=== PATIENT | male | born 1990 | race African-American/Black ===

== ENCOUNTER 2016-12-23 22:48 | Inpatient (IN) | payer OTHER ==
[~2016-12-23] VITALS: Ht 175.3 cm; Wt 142.5 kg
[~2016-12-23 22:48] MED LIST: ZNT/150 PO
[2016-12-23] MEDS ORDERED: ALUMINUM/MAGNESIUM SUSP 30 ML UDC PO STA (23:20)
[2016-12-23] MEDS ORDERED: LIDOCAINE HCL 2% VISC SOLN 20 ML UDC PO STA (23:20)
--- NOTE | 2016-12-23 23:23 | EMERGENCY ROOM VISIT NOTE ---
History Report prepared by Micah: Иван Moody Under the Supervision of: Dr. Yolis Strong D.O. First contact with patient: 23:04 Chief Complaint: CHEST PAIN Stated Complaint: RT SIDE CHEST PAINS, SOB, UPPER ABD PAIN History of Present Illness The patient is a 26 year old male who presents to the Emergency Room with complaints of tight mid-sternal chest pain that began 30 minutes ago. He rates his pain a 10/10 in severity. At this time, the patient was playing video games when the pain began. He also became short of breath as well. This has never happened to him before. He states that he has a history of GERD, and that this pain feels mildly similar. He notes that nothing makes it better or worse, specifically exertion. He takes a GERD medication every morning, and he has been keeping up with his dosages. He ate Prydeinig food earlier, but he says that it did not cause him an abnormal amount of indigestion. He denies any abdominal pain. His mother has a history of cardiac disease. Source of History: patient Onset: 30 minutes ago Position: chest (mid) Symptom Intensity: 10/10 Quality: other (Tight) Timing: constant Associated Symptoms: + SOB, No abdominal pain Review of Systems See HPI for pertinent positives & negatives. A total of 10 systems reviewed and were otherwise negative. Past Medical & Surgical Medical Problems: (1) Achilles rupture, left (2) GERD (gastroesophageal reflux disease) (3) Obesity (4) Tobacco abuse Family History Heart disease Social History Smoking Status: Never Smoker Smokeless Tobacco Use: No Alcohol Use: none Drug Use: none Housing Status: lives with significant other Occupation Status: employed Current/Historical Medications Scheduled Omeprazole (Prilosec), 20 MG PO DAILY Allergies Coded Allergies: No Known Allergies (Unverified , 12/23/16) Physical Exam Vital Signs Date Time Temp Pulse Resp B/P (MAP) Pulse Ox O2 Delivery O2 Flow Rate FiO2 12/24/16 02:13 69 18 138/69 96 Room Air 12/24/16 00:13 84 18 141/65 95 Room Air 12/23/16 23:09 72 12/23/16 22:52 36.7 83 20 160/93 99 Room Air Physical Exam HEENT: Head - normocephalic and atraumatic Pupils are equal, round, and reactive to light. Extraocular eye muscles are intact, and sclera are anicteric. Nose - moist nasal mucosa without discharge. Mouth - moist buccal mucosa. Oropharynx is nonerythematous and there is no tonsillar exudate or edema noted. Neck: Supple; no JVD, nuchal rigidity, cervical lymphadenopathy. Heart: Regular rate and rhythm. There is a normal S1 and S2 with no murmurs, clicks, or gallops appreciated. Lungs: Clear to auscultation bilaterally with no wheezes, rales, or rhonchi. Abdomen: Soft, completely nontender, nondistended, with good bowel sounds. There are no palpable pulsatile masses or hepatosplenomegaly. There is no guarding, rigidity, or rebound noted. Extremities: No evidence of cyanosis, clubbing, or edema. There are easily palpable peripheral pulses. Skin: warm and dry with good turgor and no rashes. Medical Decision & Procedures ER Provider Diagnostic Interpretation: Radiology results as stated below per my review and the radiologist's interpretation: CHEST X-RAY: No cardiomegaly, no pulmonary pathology. Per me Laboratory Results Test 12/23/16 23:06 Immature Granulocyte % (Auto) 0.3 % White Blood Count 12.59 K/uL (4.8-10.8) Red Blood Count 4.69 M/uL (4.7-6.1) Hemoglobin 14.3 g/dL (14.0-18.0) Hematocrit 41.2 % (42-52) Mean Corpuscular Volume 87.8 fL (80-100) Mean Corpuscular Hemoglobin 30.5 pg (25-34) Mean Corpuscular Hemoglobin Concent 34.7 g/dl (32-36) Platelet Count 248 K/uL (130-400) Mean Platelet Volume 9.7 fL (7.4-10.4) Neutrophils (%) (Auto) 60.0 % Lymphocytes (%) (Auto) 28.8 % Monocytes (%) (Auto) 8.4 % Eosinophils (%) (Auto) 2.3 % Basophils (%) (Auto) 0.2 % Neutrophils # (Auto) 7.54 K/uL (1.4-6.5) Lymphocytes # (Auto) 3.63 K/uL (1.2-3.4) Monocytes # (Auto) 1.06 K/uL (0.11-0.59) Eosinophils # (Auto) 0.29 K/uL (0-0.5) Basophils # (Auto) 0.03 K/uL (0-0.2) Immature Granulocyte # (Auto) 0.04 K/uL (0.00-0.02) Prothrombin Time 10.8 SECONDS (9.0-12.0) Prothromb Time International Ratio 1.0 (0.9-1.1) D-Dimer 200 ug/L FEU (0-500) Total Bilirubin 0.4 mg/dl (0.2-1) Aspartate Amino Transf (AST/SGOT) 136 U/L (15-37) Alanine Aminotransferase (ALT/SGPT) 54 U/L (12-78) Alkaline Phosphatase 64 U/L (45-117) Total Protein 7.2 gm/dl (6.4-8.2) Albumin 3.9 gm/dl (3.4-5.0) Globulin 3.3 gm/dl (2.5-4.0) Albumin/Globulin Ratio 1.2 (0.9-2) Laboratory results per my review. Medications Administered Medications (Trade) Dose Ordered Sig/Hanna Route Start Time Stop Time Status Last Admin Dose Admin Lidocaine HCl (Viscous Lidocaine 2% Soln) 10 ml NOW STAT PO 12/23/16 23:20 12/23/16 23:21 DC 12/23/16 23:29 10 ML Al Hydroxide/Mg Hydroxide (Maalox Susp) 30 ml NOW STAT PO 12/23/16 23:20 12/23/16 23:21 DC 12/23/16 23:29 30 ML Ranitidine HCl (zANTac IV) 50 mg NOW STAT IV 12/24/16 00:14 12/24/16 00:15 DC 12/24/16 00:23 50 MG Ketorolac Tromethamine (Toradol Inj) 30 mg NOW STAT IV 12/24/16 00:14 12/24/16 00:15 DC 12/24/16 00:21 30 MG Sodium Chloride 1,000 ml @ 999 mls/hr Q1H1M STAT IV 12/24/16 01:24 12/24/16 02:24 DC 12/24/16 01:33 999 MLS/HR Sodium Chloride 1,000 ml @ 250 mls/hr Q4H STAT IV 7/14/17 01:24 12/24/16 03:55 DC 12/24/16 02:36 250 MLS/HR Procedure Maalox Susp 30 ml PO Lidocaine HCl 10 ml PO Toradol Inj 30 mg IV Ranitidine HCl 50 mg IV Sodium Chloride 1000 ml @ 250 mls/hr IV Sodium Chloride 1000 ml @ 999 mls/hr IV ECG Indication: chest pain Rate (beats per minute): 71 Rhythm: normal sinus Findings: no acute ischemic change, no ectopy ED Course 2304: Past medical records reviewed. The patient was evaluated in room C9. A complete history and physical exam was performed. A twelve-lead EKG was obtained. An IV lock was initiated and labs were drawn as above. The patient was observing the ekg monitor and pulse oximeter. 2320: Ordered Maalox Susp 30 ml PO, Lidocaine HCl 10 ml PO 0000: The patient's pain is down to a 5/10. 0014: Ordered Toradol Inj 30 mg IV, Ranitidine HCl 50 mg IV. In reviewing the patient's medical records, I noted that he has a history of rhabdomyolysis previous episode of chest pain in 2010. 0124: Total CPK was greater than 7000. I Ordered Sodium Chloride 1000 ml @ 250 mls/hr IV, Sodium Chloride 1000 ml @ 999 mls/hr IV. 0128: Upon reevaluation, I discussed findings and results with the patient. He verbalized agreement of the treatment plan. I spoke with Dr. Curiel of the [facility]. The patient will be evaluated for further management and care. Medical Decision The patient is a 26 year old male who presents to the ED with chest pain. Differential diagnosis includes GERD, anxiety, pleurisy, costochondritis, pulmonary embolism, and cardiac ischemia. I attest that I have personally reviewed the patient's current medication list. Patient was found to have an elevated blood pressure and was referred to their primary doctor for recheck and further treatment. Laboratory Results: White Blood Cell count 12.5, stable H&H, creatinine 1.5, BUN 20, glucose 113, troponin negative, total CK 7,906. D-Dimer 200. The patient has a history of GERD. He had some improvement in the chest discomfort with taking a GI cocktail. He reviewing the patient's medical records, he has previously Sewed of chest pain which brought him here to the emergency department 2010. At that time, he was diagnosed with rhabdomyolysis. It seems that he is same diagnoses today. Consults Time Called: [phone] Consulting Physician: Dr. Moisés Martínez Hospitalist Returned Call: [phone] They will be evaluating the patient for further management and care. Impression Primary Impression: Rhabdomyolysis Additional Impression: Atypical chest pain Scribe Attestation The scribe's documentation has been prepared under my direction and personally reviewed by me in its entirety. I confirm that the note above accurately reflects all work, treatment, procedures, and medical decision making performed by me. Departure Information Dispostion Being Evaluated By Hospitalist Referrals No Doctor, Assigned (PCP) Patient Instructions My [facility] Problem Qualifiers
[2016-12-23 23:26] LABS: BASO % 0.2 %; BASO ABS # 0.03 K/uL (0-0.2); COMPLETE YES; EOS % 2.3 %; HEMATOCRIT 41.2 % (42-52); IG% 0.3 %; LYMPH % 28.8 %; LYMPH ABS # 3.63 K/uL (1.2-3.4); MEAN CELL VOLUME 87.8 fL (80-100); MEAN CORPUSCULAR HEMOGLOBIN 30.5 pg (25-34); MEAN CORPUSCULAR HGB CONC 34.7 g/dl (32-36); MEAN PLATELET VOLUME 9.7 fL (7.4-10.4); MONO % 8.4 %; PLATELET COUNT 248 K/uL (130-400); RED BLOOD COUNT 4.69 M/uL (4.7-6.1); WHITE BLOOD COUNT 12.59 K/uL (4.8-10.8)
[2016-12-23 23:47] LABS: BLOOD UREA NITROGEN 20 mg/dl (7-18); CALCIUM 8.6 mg/dl (8.5-10.1); CARBON DIOXIDE 24 mmol/L (21-32); CHLORIDE 107 mmol/L (98-107); GLUCOSE 113 mg/dl (70-99); POTASSIUM 3.6 mmol/L (3.5-5.1); SODIUM 138 mmol/L (136-145)
[2016-12-23] MEDS ORDERED: PRLSR20 PO (23:48)
[2016-12-24] VITALS (8 sets, daily range): BP systolic 127–156; BP diastolic 71–79; PULSE 56–71; TEMP 36.3–36.7; O2SAT 95–98; Ht 175.3 cm; Wt 142.5 kg
[2016-12-24 00:14] LABS: ALB/GLOB RATIO 1.2 (0.9-2); ALKALINE PHOSPHATASE 64 U/L (45-117); ALT/SGPT 54 U/L (12-78); AST/SGOT 136 U/L (15-37)
[2016-12-24] MEDS ORDERED: KETOROLAC TROMETHAMINE 30 MG/ML VIAL IV STA (00:14)
[2016-12-24] MEDS ORDERED: RANITIDINE HCL 50 MG/100 ML D5W IV STA (00:14)
[2016-12-24] MEDS ORDERED: SODIUM CHLORIDE 0.9% 1000ML 1,000 ML IV STA ×2 (01:24)
[2016-12-24 01:56] LABS: PROTHROMBIN TIME (PATIENT) 10.8 SECONDS (9.0-12.0)
[2016-12-24] MEDS ORDERED: ACETAMINOPHEN 325 MG TAB PO PRN (02:15)
[2016-12-24] MEDS ORDERED: ONDANSETRON INJ 2 MG/ML 2 ML VIAL IV PRN (02:15)
--- NOTE | 2016-12-24 02:43 | History and Physical ---
History & Physical Date & Time of Service: Dec 24, 2016 at 02:16 Chief Complaint: Rt Side Chest Pains, Sob, Upper Abd Pain Primary Care Physician: Shaun Arrieta D.O. History of Present Illness Source: patient, partner, clinic records, hospital records 26 yo M presents to the ER with substernal chest pain that was described as a tightness. This came on while he was playing video games at home 3 hours after working out. He admits to taking workout supplements including Thermogenic, CLA , a pre-workout mix with NO and caffeine and a post-workout protein supplement. He states that this was the first workout in an effort to get back into shape for football season after an achilles tendon repair last fall. He also works outside at a [employer] and worked 8 hours today. He reports drinking Gatorade and water while working and doesn't feel he gets dehydrated. He reports some shortness of breath and lightheadedness with the chest pain but this didn't start right away and he thinks it may have been related to the stress of what was going on. He denies any palpitations, sweating, numbness, nausea, vomiting , diarrhea, blood in the stool or urine and no discoloration of his urine. He reports some soreness generally in his muscles from working out but doesn't feel this is out of the ordinary. He denies pain at this time. He does admit to smoking 8 cigarettes per day and has a plan to quit; he is also using nicorette gum. He otherwise has no medical problems. In the ER he was given a GI cocktail with only minimal improvement in symptoms. Chest pain resolved with IVF administration. 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 (2) GERD (gastroesophageal reflux disease) Status: Chronic (3) Obesity Status: Chronic (4) Tobacco abuse Status: Chronic Family History Diabetes mellitus FATHER Heart disease MOTHER (62 yo) Social History Smoking Status: Current Every Day Smoker Smokeless Tobacco Use: No Alcohol Use: socially Drug Use: none Marital Status: in relationship Housing status: lives with significant other Occupational Status: employed Immunizations History of Influenza Vaccine: No History of Tetanus Vaccine?: No History of Pneumococcal: No History of Hepatitis B Vaccine: No Multi-Drug Resistant Organisms History of MDRO: No Allergies Coded Allergies: No Known Allergies (Unverified , 12/23/16) Home Medications Scheduled Omeprazole (Prilosec), 20 MG PO DAILY Review of Systems At least ten systems reviewed and negative except as indicated in HPI Physical Exam Vital Signs Date Time Temp Pulse Resp B/P (MAP) Pulse Ox O2 Delivery O2 Flow Rate FiO2 12/24/16 00:13 84 18 141/65 95 Room Air 12/23/16 23:09 72 12/23/16 22:52 36.7 83 20 160/93 99 Room Air GEN: Obese, +muscle mass, in no acute distress, alert and appropriate HEENT: NC/AT, pupils are equal and reactive, normal sclerae/conjunctivae, MMM CARDIO: reg rate, S1/2 heard without m/g/r LUNGS: CTA bilaterally, no crackles, rales or wheezes, good diaphragmatic excursion ABD: soft, non-tender, non-distended, no rebound or guarding, +BS EXTREMITY: RP and DP palpable 2+ bilat, no LE swelling or edema, extremities are warm and well-perfused NEURO: CN 2-12 grossly intact, sensation intact throughout MUSC: 5/5 strength throughout, moves all extremities equally, able to sit up with ease SKIN: warm and dry Diagnostics Laboratory Results Results Past 24 Hours Test 12/23/16 23:06 Range/Units White Blood Count 12.59 4.8-10.8 K/uL Red Blood Count 4.69 4.7-6.1 M/uL Hemoglobin 14.3 14.0-18.0 g/dL Hematocrit 41.2 42-52 % Mean Corpuscular Volume 87.8 80-100 fL Mean Corpuscular Hemoglobin 30.5 25-34 pg Mean Corpuscular Hemoglobin Concent 34.7 32-36 g/dl Platelet Count 248 130-400 K/uL Mean Platelet Volume 9.7 7.4-10.4 fL Neutrophils (%) (Auto) 60.0 % Lymphocytes (%) (Auto) 28.8 % Monocytes (%) (Auto) 8.4 % Eosinophils (%) (Auto) 2.3 % Basophils (%) (Auto) 0.2 % Neutrophils # (Auto) 7.54 1.4-6.5 K/uL Lymphocytes # (Auto) 3.63 1.2-3.4 K/uL Monocytes # (Auto) 1.06 0.11-0.59 K/uL Eosinophils # (Auto) 0.29 0-0.5 K/uL Basophils # (Auto) 0.03 0-0.2 K/uL RDW Standard Deviation 42.4 36.4-46.3 fL RDW Coefficient of Variation 13.2 11.5-14.5 % Immature Granulocyte % (Auto) 0.3 % Immature Granulocyte # (Auto) 0.04 0.00-0.02 K/uL Prothrombin Time 10.8 9.0-12.0 SECONDS Prothromb Time International Ratio 1.0 0.9-1.1 D-Dimer 200 0-500 ug/L FEU Sodium Level 138 136-145 mmol/L Potassium Level 3.6 3.5-5.1 mmol/L Chloride Level 107 98-107 mmol/L Carbon Dioxide Level 24 21-32 mmol/L Anion Gap 7.0 3-11 mmol/L Blood Urea Nitrogen 20 7-18 mg/dl Creatinine 1.50 0.60-1.40 mg/dl Est Creatinine Clear Calc Drug Dose 102.6 ml/min Estimated GFR () 72.9 Estimated GFR (Non- 62.9 BUN/Creatinine Ratio 13.0 10-20 Random Glucose 113 70-99 mg/dl Calcium Level 8.6 8.5-10.1 mg/dl Total Bilirubin 0.4 0.2-1 mg/dl Aspartate Amino Transf (AST/SGOT) 136 15-37 U/L Alanine Aminotransferase (ALT/SGPT) 54 12-78 U/L Alkaline Phosphatase 64 45-117 U/L Total Creatine Kinase 7906 39-308 U/L Creatine Kinase MB 20.9 0.5-3.6 ng/ml Creatine Kinase MB Ratio 0-3.0 Troponin I < 0.015 0-0.045 ng/ml Total Protein 7.2 6.4-8.2 gm/dl Albumin 3.9 3.4-5.0 gm/dl Globulin 3.3 2.5-4.0 gm/dl Albumin/Globulin Ratio 1.2 0.9-2 Diagnostic Radiology CXR (wet read): clear without acute intrathoracic process EKG SR 71, no ST changes. Impression Assessment and Plan 26 yo M admitted with rhabdomyolysis 1. Rhabdomyolysis 2/2 supplement use in setting of first workout after 6 month recovery from prior surgery as well as environmental exposure to heat for 8 hours working today. He has a h/o rhabdo in the past which also put him in the hospital. He was also using supplements at that time. Counseled to stop using these with workouts and to avoid heavy exercise for at least one week post- discharge. He verbalized understanding with intent to comply. He will be placed on a monitored floor as a precaution and given more IVF overnight. No pain at this time. Will repeat labwork including CK and trop with morning labs. 2. Tobacco use-plan to quit with nicotine gum 3. GERD-PPI 4. Obesity DVT proph-SCDs/ambulation Full Code Dispo-telemetry DO [facility] Hospital[facility] Level of Care Telemetry Resuscitation Status FULL RESUSCITATION VTE Prophylaxis VTE Risk Assessment Done? Y/N: Yes Risk Level: Moderate Given or contraindicated: SCD's, Treatment not indicated
[2016-12-24] MEDS ORDERED: IV FLUIDS COMPLETED PRN (02:45)
[2016-12-24] MEDS: SODIUM CHLORIDE 0.9% 1000ML 1,000 ML IV SCH ×2 (03:59→10:35)
[2016-12-24 05:30] LABS: HEMATOCRIT 41.1 % (42-52); MEAN CELL VOLUME 89.2 fL (80-100); MEAN CORPUSCULAR HEMOGLOBIN 29.7 pg (25-34); MEAN CORPUSCULAR HGB CONC 33.3 g/dl (32-36); MEAN PLATELET VOLUME 9.8 fL (7.4-10.4); PLATELET COUNT 230 K/uL (130-400); RED BLOOD COUNT 4.61 M/uL (4.7-6.1); WHITE BLOOD COUNT 9.16 K/uL (4.8-10.8)
[2016-12-24 06:02] LABS: BLOOD UREA NITROGEN 18 mg/dl (7-18); CALCIUM 8.2 mg/dl (8.5-10.1); CARBON DIOXIDE 27 mmol/L (21-32); CHLORIDE 107 mmol/L (98-107); GLUCOSE 91 mg/dl (70-99); MAGNESIUM 2.4 mg/dl (1.8-2.4); POTASSIUM 3.7 mmol/L (3.5-5.1); SODIUM 140 mmol/L (136-145)
[2016-12-24 06:30] LABS: CKMB/CK RATIO 0.3 (0-3.0); PHOSPHORUS 3.5 mg/dl (2.5-4.9)
--- NOTE | 2016-12-24 06:44 | DIAGNOSTIC IMAGING REPORT ---
CHEST ONE VIEW PORTABLE CLINICAL HISTORY: Atypical chest pain and shortness of breath COMPARISON STUDY: 12/17/2010 FINDINGS: The cardiac and mediastinal contours are normal. There is no evidence of focal pulmonary consolidation. There is no evidence of failure. No pleural effusions are visualized.[ IMPRESSION: No active disease in the chest. Electronically signed by: Kalen Cuadra M.D. 12/24/2016 6:43 AM Dictated Date/Time: 12/24/2016 6:42 AM
[2016-12-24] MEDS: PANTOprazole SOD 40 MG TAB PO SCH (10:34)
--- NOTE | 2016-12-24 11:35 | Progress Note ---
Internal Med Progress Note Date of Service: Dec 24, 2016. Provider Documentation: SUBJECTIVE: The patine omega seen and examined Denies any symptoms OBJECTIVE: Vital Signs-as noted below Exam: General-No distress at rest Eyes-normal ENT-normal Neck-supple Lungs-clear to ausucltate bilaterally Heart-Regular,no murmur appreciated Abdomen-Benign,no masses,bowel sound present Extremities-Trace edema bilaterally Neuro-AAOx3 No focal neuro deficit Lab data as noted below. ASSESSMENT & PLAN: Rhabdomyolysis -2/2 supplement use in setting of first workout after 6 month recovery from prior surgery -Also environmental exposure to heat for 8 hours working today. -Started on IVF -will increase the dose and advised to drink more water -CPK is high at >8k,will check at 4PM -may be going home if significantly improved -no Kidney injury Tobacco use-plan to quit with nicotine gum GERD-PPI Obesity DVT proph-SCDs/ambulation Full Code Dispo-telemetry Likely to be discharged in a day or two Vital Signs: Date Time Temp Pulse Resp B/P (MAP) Pulse Ox O2 Delivery O2 Flow Rate FiO2 12/24/16 10:35 36.6 59 20 139/71 (93) 98 Room Air 12/24/16 08:06 98 Room Air 12/24/16 07:47 36.6 71 20 138/79 (98) 98 Room Air 12/24/16 04:00 36.5 65 18 144/75 97 Room Air 12/24/16 03:24 79 17 129/72 98 12/24/16 02:48 62 12/24/16 02:13 69 18 138/69 96 Room Air 12/24/16 00:13 84 18 141/65 95 Room Air 12/23/16 23:09 72 12/23/16 22:52 36.7 83 20 160/93 99 Room Air Lab Results: Results Past 24 Hours Test 12/23/16 23:06 12/24/16 05:04 Range/Units White Blood Count 12.59 9.16 4.8-10.8 K/uL Red Blood Count 4.69 4.61 4.7-6.1 M/uL Hemoglobin 14.3 13.7 14.0-18.0 g/dL Hematocrit 41.2 41.1 42-52 % Mean Corpuscular Volume 87.8 89.2 80-100 fL Mean Corpuscular Hemoglobin 30.5 29.7 25-34 pg Mean Corpuscular Hemoglobin Concent 34.7 33.3 32-36 g/dl Platelet Count 248 230 130-400 K/uL Mean Platelet Volume 9.7 9.8 7.4-10.4 fL Neutrophils (%) (Auto) 60.0 % Lymphocytes (%) (Auto) 28.8 % Monocytes (%) (Auto) 8.4 % Eosinophils (%) (Auto) 2.3 % Basophils (%) (Auto) 0.2 % Neutrophils # (Auto) 7.54 1.4-6.5 K/uL Lymphocytes # (Auto) 3.63 1.2-3.4 K/uL Monocytes # (Auto) 1.06 0.11-0.59 K/uL Eosinophils # (Auto) 0.29 0-0.5 K/uL Basophils # (Auto) 0.03 0-0.2 K/uL RDW Standard Deviation 42.4 44.0 36.4-46.3 fL RDW Coefficient of Variation 13.2 13.4 11.5-14.5 % Immature Granulocyte % (Auto) 0.3 % Immature Granulocyte # (Auto) 0.04 0.00-0.02 K/uL Prothrombin Time 10.8 9.0-12.0 SECONDS Prothromb Time International Ratio 1.0 0.9-1.1 D-Dimer 200 0-500 ug/L FEU Sodium Level 138 140 136-145 mmol/L Potassium Level 3.6 3.7 3.5-5.1 mmol/L Chloride Level 107 107 98-107 mmol/L Carbon Dioxide Level 24 27 21-32 mmol/L Anion Gap 7.0 6.0 3-11 mmol/L Blood Urea Nitrogen 20 18 7-18 mg/dl Creatinine 1.50 1.30 0.60-1.40 mg/dl Est Creatinine Clear Calc Drug Dose 102.6 118.0 ml/min Estimated GFR () 72.9 86.7 Estimated GFR (Non- 62.9 74.8 BUN/Creatinine Ratio 13.0 14.0 10-20 Random Glucose 113 91 70-99 mg/dl Calcium Level 8.6 8.2 8.5-10.1 mg/dl Total Bilirubin 0.4 0.2-1 mg/dl Aspartate Amino Transf (AST/SGOT) 136 15-37 U/L Alanine Aminotransferase (ALT/SGPT) 54 12-78 U/L Alkaline Phosphatase 64 45-117 U/L Total Creatine Kinase 7906 8890 39-308 U/L Creatine Kinase MB 20.9 24.1 0.5-3.6 ng/ml Creatine Kinase MB Ratio 0.3 0-3.0 Troponin I < 0.015 < 0.015 0-0.045 ng/ml Total Protein 7.2 6.4-8.2 gm/dl Albumin 3.9 3.4-5.0 gm/dl Globulin 3.3 2.5-4.0 gm/dl Albumin/Globulin Ratio 1.2 0.9-2 Phosphorus Level 3.5 2.5-4.9 mg/dl Magnesium Level 2.4 1.8-2.4 mg/dl
[2016-12-24 16:37] LABS: BUN/CREATININE RATIO 13.3 (10-20); CALCIUM 7.9 mg/dl (8.5-10.1); CREATININE 1.1 mg/dl (0.60-1.40); POTASSIUM 4.2 mmol/L (3.5-5.1)
[2016-12-25] VITALS (7 sets, daily range): BP systolic 121–145; BP diastolic 67–79; PULSE 59–71; TEMP 36.6–36.9; O2SAT 96–98
[2016-12-25 06:52] LABS: HEMATOCRIT 38.6 % (42-52); MEAN CELL VOLUME 90.6 fL (80-100); MEAN CORPUSCULAR HEMOGLOBIN 31.2 pg (25-34); MEAN CORPUSCULAR HGB CONC 34.5 g/dl (32-36); MEAN PLATELET VOLUME 10.1 fL (7.4-10.4); PLATELET COUNT 218 K/uL (130-400); RED BLOOD COUNT 4.26 M/uL (4.7-6.1)
[2016-12-25 07:24] LABS: BUN/CREATININE RATIO 6.6 (10-20); CALCIUM 8.2 mg/dl (8.5-10.1); CREATININE 1.2 mg/dl (0.60-1.40); MAGNESIUM 2.2 mg/dl (1.8-2.4); POTASSIUM 4.2 mmol/L (3.5-5.1)
[2016-12-25 07:54] LABS: PHOSPHORUS 3.1 mg/dl (2.5-4.9)
[2016-12-25] MEDS: PANTOprazole SOD 40 MG TAB PO SCH (08:39)
[2016-12-25] MEDS: SODIUM CHLORIDE 0.9% 1000ML 1,000 ML IV SCH ×2 (09:15→14:27)
--- NOTE | 2016-12-25 14:43 | Progress Note ---
Internal Med Progress Note Date of Service: Dec 25, 2016. Provider Documentation: SUBJECTIVE: The patine twas seen and examined Denies any symptoms Wants to go home no matter what is the level of CPK CPK level is not yet safe level to be discharged Will sign out AMA if not discharged OBJECTIVE: Vital Signs-as noted below Exam: General-No distress at rest Eyes-normal ENT-normal Neck-supple Lungs-clear to ausucltate bilaterally Heart-Regular,no murmur appreciated Abdomen-Benign,no masses,bowel sound present Extremities-Trace edema bilaterally Neuro-AAOx3 No focal neuro deficit Lab data as noted below. ASSESSMENT & PLAN: Rhabdomyolysis -2/2 supplement use in setting of first workout after 6 month recovery from prior surgery -Also environmental exposure to heat for 8 hours working today. -Started on IVF -will increase the dose and advised to drink more water -CPK is high at >8k,will check at 4PM -may be going home if significantly improved -no Kidney injury -CPK remains >8K -continue IVF and recheck at 3 PM -will send home this afternoon -CPK still >8000 a little low compared with the level of this Morning -Discussed about the risk of Kidney failure high level of CPK -Accepted the risk of getting worse if goes home -Will see PCP on Tuesday with the Blood test Tobacco use-plan to quit with nicotine gum GERD-PPI Obesity DVT proph-SCDs/ambulation Full Code Dispo-telemetry Discharged home -accepted the risk of getting worse Discussed in front of the Girl friend Both of them are understanding Vital Signs: Date Time Temp Pulse Resp B/P (MAP) Pulse Ox O2 Delivery O2 Flow Rate FiO2 12/25/16 16:04 Room Air 12/25/16 15:03 36.9 63 18 135/71 (92) 98 Room Air 12/25/16 12:03 Room Air 12/25/16 10:49 36.6 59 18 121/67 (85) 98 Room Air 12/25/16 08:02 Room Air 12/25/16 07:21 36.9 71 18 145/79 (101) 96 Room Air 12/25/16 04:00 98 Room Air 12/25/16 03:52 36.8 63 20 123/73 (90) 98 Room Air 12/25/16 00:00 97 Room Air 12/24/16 23:30 36.7 62 22 127/79 (95) 97 Room Air 12/24/16 20:00 95 Room Air 12/24/16 19:25 36.6 58 16 156/77 (103) 95 Room Air Lab Results: Results Past 24 Hours Test 12/25/16 06:20 12/25/16 15:10 Range/Units White Blood Count 6.00 4.8-10.8 K/uL Red Blood Count 4.26 4.7-6.1 M/uL Hemoglobin 13.3 14.0-18.0 g/dL Hematocrit 38.6 42-52 % Mean Corpuscular Volume 90.6 80-100 fL Mean Corpuscular Hemoglobin 31.2 25-34 pg Mean Corpuscular Hemoglobin Concent 34.5 32-36 g/dl RDW Standard Deviation 45.5 36.4-46.3 fL RDW Coefficient of Variation 13.8 11.5-14.5 % Platelet Count 218 130-400 K/uL Mean Platelet Volume 10.1 7.4-10.4 fL Sodium Level 142 143 136-145 mmol/L Potassium Level 4.2 4.1 3.5-5.1 mmol/L Chloride Level 110 113 98-107 mmol/L Carbon Dioxide Level 27 26 21-32 mmol/L Anion Gap 5.0 4.0 3-11 mmol/L Blood Urea Nitrogen 8 6 7-18 mg/dl Creatinine 1.20 1.00 0.60-1.40 mg/dl Est Creatinine Clear Calc Drug Dose 130.1 156.1 ml/min Estimated GFR () 95.5 119.0 Estimated GFR (Non- 82.4 102.7 BUN/Creatinine Ratio 6.6 6.4 10-20 Random Glucose 92 94 70-99 mg/dl Calcium Level 8.2 8.0 8.5-10.1 mg/dl Phosphorus Level 3.1 2.5-4.9 mg/dl Magnesium Level 2.2 1.8-2.4 mg/dl Total Creatine Kinase 8397 8018 39-308 U/L
[2016-12-25 15:36] LABS: BUN/CREATININE RATIO 6.4 (10-20); POTASSIUM 4.1 mmol/L (3.5-5.1)
--- NOTE | 2016-12-25 16:03 | Discharge Instructions ---
Discharge Instructions Date of Service Dec 25, 2016. Admission Reason for Admission: Rhabdomyolysis Discharge Discharge Diagnosis / Problem: Rhabdomyolysis Discharge Goals Goal(s): Prevent Disease Progression Activity Recommendations Activity Limitations: resume your previous activity No Strenuous activity until being evaluated by your PCP . Instructions / Follow-Up Instructions / Follow-Up Your Doctor's office will call with appointment Current Hospital Diet Patient's current hospital diet: Regular Diet Discharge Diet Recommended Diet: Regular Diet Pending Studies Studies pending at discharge: no Medical Emergencies . Who to Call and When: Medical Emergencies: If at any time you feel your situation is an emergency, please call 911 immediately. . Non-Emergent Contact Non-Emergency issues call your: Primary Care Provider . Past History Medical & Surgical History: (1) Rhabdomyolysis (2) Achilles rupture, left (3) Obesity (4) Tobacco abuse . "Provider Documentation" section prepared by Soila Taylor. . VTE Core Measure Inpt VTE Proph given/why not?: SCD's, Treatment not indicated
--- NOTE | 2016-12-26 08:04 | Discharge Summary ---
Discharge Summary Date of Service Dec 26, 2016. Discharge Summary Admission Date: Dec 24, 2016 at 02:37 Discharge Date: Dec 25, 2016 Discharge Disposition: Home Principal Diagnosis: Rhabdomyolysis Secondary Diagnoses/Problems: Please se H&P and Hospital Progress note Medication Reconciliation Continued Medications: Omeprazole (Prilosec) 20 Mg Capcr 20 MG PO DAILY, CAP Admission Information HPI (per Admitting provider): 26 yo M presents to the ER with substernal chest pain that was described as a tightness. This came on while he was playing video games at home 3 hours after working out. He admits to taking workout supplements including Thermogenic, CLA , a pre-workout mix with NO and caffeine and a post-workout protein supplement. He states that this was the first workout in an effort to get back into shape for football season after an achilles tendon repair last fall. He also works outside at a [employer] and worked 8 hours today. He reports drinking Gatorade and water while working and doesn't feel he gets dehydrated. He reports some shortness of breath and lightheadedness with the chest pain but this didn't start right away and he thinks it may have been related to the stress of what was going on. He denies any palpitations, sweating, numbness, nausea, vomiting , diarrhea, blood in the stool or urine and no discoloration of his urine. He reports some soreness generally in his muscles from working out but doesn't feel this is out of the ordinary. He denies pain at this time. He does admit to smoking 8 cigarettes per day and has a plan to quit; he is also using nicorette gum. He otherwise has no medical problems. In the ER he was given a GI cocktail with only minimal improvement in symptoms. Chest pain resolved with IVF administration. 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 (2) GERD (gastroesophageal reflux disease) Status: Chronic (3) Obesity Status: Chronic (4) Tobacco abuse Status: Chronic Family History Diabetes mellitus FATHER Heart disease MOTHER (62 yo) Social History Smoking Status: Current Every Day Smoker Smokeless Tobacco Use: No Alcohol Use: socially Drug Use: none Marital Status: in relationship Housing status: lives with significant other Occupational Status: employed Immunizations History of Influenza Vaccine: No History of Tetanus Vaccine?: No History of Pneumococcal: No History of Hepatitis B Vaccine: No Multi-Drug Resistant Organisms History of MDRO: No Allergies Coded Allergies: No Known Allergies (Unverified , 12/23/16) Home Medications Scheduled Omeprazole (Prilosec), 20 MG PO DAILY Review of Systems At least ten systems reviewed and negative except as indicated in HPI Physical Ex - H&P Physical Exam Vital Signs Date Time Temp Pulse Resp B/P (MAP) Pulse Ox O2 Delivery O2 Flow Rate FiO2 12/24/16 00:13 84 18 141/65 95 Room Air 12/23/16 23:09 72 12/23/16 22:52 36.7 83 20 160/93 99 Room Air GEN: Obese, +muscle mass, in no acute distress, alert and appropriate HEENT: NC/AT, pupils are equal and reactive, normal sclerae/conjunctivae, MMM CARDIO: reg rate, S1/2 heard without m/g/r LUNGS: CTA bilaterally, no crackles, rales or wheezes, good diaphragmatic excursion ABD: soft, non-tender, non-distended, no rebound or guarding, +BS EXTREMITY: RP and DP palpable 2+ bilat, no LE swelling or edema, extremities are warm and well-perfused NEURO: CN 2-12 grossly intact, sensation intact throughout MUSC: 5/5 strength throughout, moves all extremities equally, able to sit up with ease SKIN: warm and dry Diagnostics - H&P Diagnostics Laboratory Results Results Past 24 Hours Test 12/23/16 23:06 Range/Units White Blood Count 12.59 4.8-10.8 K/uL Red Blood Count 4.69 4.7-6.1 M/uL Hemoglobin 14.3 14.0-18.0 g/dL Hematocrit 41.2 42-52 % Mean Corpuscular Volume 87.8 80-100 fL Mean Corpuscular Hemoglobin 30.5 25-34 pg Mean Corpuscular Hemoglobin Concent 34.7 32-36 g/dl Platelet Count 248 130-400 K/uL Mean Platelet Volume 9.7 7.4-10.4 fL Neutrophils (%) (Auto) 60.0 % Lymphocytes (%) (Auto) 28.8 % Monocytes (%) (Auto) 8.4 % Eosinophils (%) (Auto) 2.3 % Basophils (%) (Auto) 0.2 % Neutrophils # (Auto) 7.54 1.4-6.5 K/uL Lymphocytes # (Auto) 3.63 1.2-3.4 K/uL Monocytes # (Auto) 1.06 0.11-0.59 K/uL Eosinophils # (Auto) 0.29 0-0.5 K/uL Basophils # (Auto) 0.03 0-0.2 K/uL RDW Standard Deviation 42.4 36.4-46.3 fL RDW Coefficient of Variation 13.2 11.5-14.5 % Immature Granulocyte % (Auto) 0.3 % Immature Granulocyte # (Auto) 0.04 0.00-0.02 K/uL Prothrombin Time 10.8 9.0-12.0 SECONDS Prothromb Time International Ratio 1.0 0.9-1.1 D-Dimer 200 0-500 ug/L FEU Sodium Level 138 136-145 mmol/L Potassium Level 3.6 3.5-5.1 mmol/L Chloride Level 107 98-107 mmol/L Carbon Dioxide Level 24 21-32 mmol/L Anion Gap 7.0 3-11 mmol/L Blood Urea Nitrogen 20 7-18 mg/dl Creatinine 1.50 0.60-1.40 mg/dl Est Creatinine Clear Calc Drug Dose 102.6 ml/min Estimated GFR () 72.9 Estimated GFR (Non- 62.9 BUN/Creatinine Ratio 13.0 10-20 Random Glucose 113 70-99 mg/dl Calcium Level 8.6 8.5-10.1 mg/dl Total Bilirubin 0.4 0.2-1 mg/dl Aspartate Amino Transf (AST/SGOT) 136 15-37 U/L Alanine Aminotransferase (ALT/SGPT) 54 12-78 U/L Alkaline Phosphatase 64 45-117 U/L Total Creatine Kinase 7906 39-308 U/L Creatine Kinase MB 20.9 0.5-3.6 ng/ml Creatine Kinase MB Ratio 0-3.0 Troponin I < 0.015 0-0.045 ng/ml Total Protein 7.2 6.4-8.2 gm/dl Albumin 3.9 3.4-5.0 gm/dl Globulin 3.3 2.5-4.0 gm/dl Albumin/Globulin Ratio 1.2 0.9-2 Diagnostic Radiology CXR (wet read): clear without acute intrathoracic process EKG SR 71, no ST changes. Impression - H&P Impression Assessment and Plan 26 yo M admitted with rhabdomyolysis 1. Rhabdomyolysis 2/2 supplement use in setting of first workout after 6 month recovery from prior surgery as well as environmental exposure to heat for 8 hours working today. He has a h/o rhabdo in the past which also put him in the hospital. He was also using supplements at that time. Counseled to stop using these with workouts and to avoid heavy exercise for at least one week post- discharge. He verbalized understanding with intent to comply. He will be placed on a monitored floor as a precaution and given more IVF overnight. No pain at this time. Will repeat labwork including CK and trop with morning labs. 2. Tobacco use-plan to quit with nicotine gum 3. GERD-PPI 4. Obesity DVT proph-SCDs/ambulation Full Code Dispo-telemetry Asuncion Curiel DO [facility] Hospitalist Level of Care Telemetry Resuscitation Status FULL RESUSCITATION VTE Prophylaxis VTE Risk Assessment Done? Y/N: Yes Risk Level: Moderate Given or contraindicated: SCD's, Treatment not indicated Physical Exam (per Admitting): GEN: Obese, +muscle mass, in no acute distress, alert and appropriate HEENT: NC/AT, pupils are equal and reactive, normal sclerae/conjunctivae, MMM CARDIO: reg rate, S1/2 heard without m/g/r LUNGS: CTA bilaterally, no crackles, rales or wheezes, good diaphragmatic excursion ABD: soft, non-tender, non-distended, no rebound or guarding, +BS EXTREMITY: RP and DP palpable 2+ bilat, no LE swelling or edema, extremities are warm and well-perfused NEURO: CN 2-12 grossly intact, sensation intact throughout MUSC: 5/5 strength throughout, moves all extremities equally, able to sit up with ease SKIN: warm and dry Hospital Course Rhabdomyolysis -2/2 supplement use in setting of first workout after 6 month recovery from prior surgery -Also environmental exposure to heat for 8 hours working today. -Started on IVF -will increase the dose and advised to drink more water -CPK is high at >8k,will check at 4PM -may be going home if significantly improved -no Kidney injury -CPK remains >8K -continue IVF and recheck at 3 PM -will send home this afternoon -CPK still >8000 a little low compared with the level of this Morning -Discussed about the risk of Kidney failure high level of CPK -Accepted the risk of getting worse if goes home -Will see PCP on Tuesday with the Blood test Tobacco use-plan to quit with nicotine gum GERD-PPI Obesity DVT proph-SCDs/ambulation Full Code Dispo-telemetry Discharged home -accepted the risk of getting worse Discussed in front of the Girl friend Both of them are understanding Total time spent on discharge = 35 minutes This includes examination of the patient, discharge planning, medication reconciliation, and communication with other providers. Discharge Instructions Date of Service Dec 25, 2016. Admission Reason for Admission: Rhabdomyolysis Discharge Discharge Diagnosis / Problem: Rhabdomyolysis Discharge Goals Goal(s): Prevent Disease Progression Activity Recommendations Activity Limitations: resume your previous activity No Strenuous activity until being evaluated by your PCP . Instructions / Follow-Up Instructions / Follow-Up Your Doctor's office will call with appointment Current Hospital Diet Patient's current hospital diet: Regular Diet Discharge Diet Recommended Diet: Regular Diet Pending Studies Studies pending at discharge: no Medical Emergencies . Who to Call and When: Medical Emergencies: If at any time you feel your situation is an emergency, please call 911 immediately. . Non-Emergent Contact Non-Emergency issues call your: Primary Care Provider . Past History Medical & Surgical History: (1) Rhabdomyolysis (2) Achilles rupture, left (3) Obesity (4) Tobacco abuse . "Provider Documentation" section prepared by Soila Taylor. . VTE Core Measure Inpt VTE Proph given/why not?: SCD's, Treatment not indicated <Electronically signed by Soila Taylor M.D.> Signed: 12/25/16 [id number] Signed: Additional Copies To Shaun Arrieta D.O.
== END 2016-12-25 17:04 | disposition home or self-care (01) | DRG 558 ==
LOC: C.EDB 22:49 → C.2T 12-24 02:37 → ENRESERV 12-24 03:17
PROVIDERS: ADMIT Hospitalist; ATTEND Internal Medicine
DX: M62.82 Rhabdomyolysis (principal); Z83.3 Family history of diabetes mellitus; Z82.49 Family history of ischemic heart disease and other diseases of the circulatory system; F17.200 Nicotine dependence, unspecified, uncomplicated; K21.9 Gastro-esophageal reflux disease without esophagitis; E66.9 Obesity, unspecified; T38.5X5A Adverse effect of other estrogens and progestogens, initial encounter; X30.XXXA Exposure to excessive natural heat, initial encounter

== ENCOUNTER 2017-10-20 20:29 | Emergency (ER) | payer OTHER ==
[~2017-10-20] VITALS: Ht 175.3 cm; Wt 133.7 kg
[2017-10-20 20:32] VITALS: BP 131/75; PULSE 81; TEMP 36.9; O2SAT 95; Ht 175.3 cm; Wt 133.7 kg
--- NOTE | 2017-10-20 21:27 | DIAGNOSTIC IMAGING REPORT ---
L FINGER(S) MIN 2 VIEWS ROUTINE HISTORY: 26 years-old Male L 5th finger pain acute pain of the left fifth finger COMPARISON: None available TECHNIQUE: 3 views of the left fifth finger FINDINGS: There is an acute intra-articular obliquely oriented fracture involving the distal aspect of the fifth proximal phalanx with 2 mm lateral, 2 mm proximal and 3 mm volar displacement. Mild associated soft tissue swelling. Additionally, there is an ill-defined fracture involving the volar base of the fifth middle phalanx seen best on the lateral view. IMPRESSION: 1. Acute intra-articular mildly displaced fracture of the distal aspect fifth proximal phalanx. 2. Subtle acute fracture involves the volar base of the fifth middle phalanx. The above report was generated using voice recognition software. It may contain grammatical, syntax or spelling errors. Electronically signed by: Jackson Syed M.D. 10/20/2017 9:26 PM Dictated Date/Time: 10/20/2017 9:24 PM
[2017-10-20] MEDS ORDERED: LIDOCAINE 1% BUFFERED INJ 5 ML VIAL INFIL ONE (21:30)
--- NOTE | 2017-10-20 22:30 | DIAGNOSTIC IMAGING REPORT ---
L FINGER(S) MIN 2 VIEWS ROUTINE HISTORY: 26 years-old Male L 5th finger fx reduction status post reduction of the left fifth proximal phalangeal fracture COMPARISON: Left finger radiographs of same day at 8:42 PM TECHNIQUE: 3 radiographs of the left fifth finger FINDINGS: There is slightly improved alignment of the intra-articular oblique fracture involving the lateral aspect of the distal portion fifth proximal phalanx. There is now only approximately 1 mm lateral and proximal displacement. The degree of the volar displacement cannot be assessed secondary to suboptimal lateral projection. Moderate soft tissue swelling. IMPRESSION: Mildly improved alignment of the acute intra-articular fracture of the distal aspect fifth proximal phalanx. The above report was generated using voice recognition software. It may contain grammatical, syntax or spelling errors. Electronically signed by: Jackson Syed M.D. 10/20/2017 10:29 PM Dictated Date/Time: 10/20/2017 10:26 PM
[2017-10-20] MEDS ORDERED: PRLSR20 PO (23:48)
--- NOTE | 2017-10-21 00:14 | EMERGENCY ROOM VISIT NOTE ---
History First contact with patient: 20:45 Chief Complaint: FINGER PAIN Stated Complaint: DISLOCATED R PINKY FINGER History of Present Illness The patient is a 26 year old male who presents to the Emergency Room with complaints of a left fifth finger injury while practicing football tonight. The patient reports that he attempted to catch a pass and felt a pop in his finger. The patient reports that he cannot bend the finger because of discomfort. He rates his pain a 7 out of 10. He denies any pain of the adjacent fingers, hand or wrist region. The patient is right-hand dominant, and rates his discomfort a 7 out of 10. Review of Systems 10 system review was performed and was negative except for pertinent positives and negatives as indicated in history of present illness Past Medical/Surgical History Medical Problems: (1) Achilles rupture, left (2) GERD (gastroesophageal reflux disease) (3) Obesity (4) Tobacco abuse Family History Diabetes mellitus FATHER Heart disease MOTHER (62 yo) Social History Smoking Status: Current Every Day Smoker Alcohol Use: none Drug Use: none Marital Status: in relationship Housing Status: lives with significant other Occupation Status: employed Current/Historical Medications Scheduled Omeprazole (Prilosec), 20 MG PO DAILY Physical Exam Vital Signs Date Time Temp Pulse Resp B/P (MAP) Pulse Ox O2 Delivery O2 Flow Rate FiO2 10/20/17 20:32 36.9 81 18 131/75 95 Room Air Physical Exam CONSTITUTIONAL: Healthy and well nourished. Alert and oriented X 3 with positive affect. Patient does not appear in any acute distress. HEENT: Normocephalic, atraumatic. Pupils equal, round and reactive. NECK: Full active range of motion without discomfort. MUSCULOSKELETAL: Examination of left finger shows generalized edema with no open wounds or obvious deformity. Capillary refill is less than 2 seconds. INTEGUMENTARY: No rash or other significant dermatologic conditions noted. NEUROLOGIC: Left fifth finger is sensory intact. Medical Decision & Procedures ER Provider Diagnostic Interpretation: My interpretation of the initial left fifth finger x-rays shows an intra- articular an oblique fracture through the proximal phalanx, extending to the PIP joint. Radiologist report is as follows: L FINGER(S) MIN 2 VIEWS ROUTINE HISTORY: 26 years-old Male L 5th finger pain acute pain of the left fifth finger COMPARISON: None available TECHNIQUE: 3 views of the left fifth finger FINDINGS: There is an acute intra-articular obliquely oriented fracture involving the distal aspect of the fifth proximal phalanx with 2 mm lateral, 2 mm proximal and 3 mm volar displacement. Mild associated soft tissue swelling. Additionally, there is an ill-defined fracture involving the volar base of the fifth middle phalanx seen best on the lateral view. IMPRESSION: 1. Acute intra-articular mildly displaced fracture of the distal aspect fifth proximal phalanx. 2. Subtle acute fracture involves the volar base of the fifth middle phalanx. Post reduction x-rays does show mild improvement of the angulation. Radiologist report is as follows: L FINGER(S) MIN 2 VIEWS ROUTINE HISTORY: 26 years-old Male L 5th finger fx reduction status post reduction of the left fifth proximal phalangeal fracture COMPARISON: Left finger radiographs of same day at 8:42 PM TECHNIQUE: 3 radiographs of the left fifth finger FINDINGS: There is slightly improved alignment of the intra-articular oblique fracture involving the lateral aspect of the distal portion fifth proximal phalanx. There is now only approximately 1 mm lateral and proximal displacement. The degree of the volar displacement cannot be assessed secondary to suboptimal lateral projection. Moderate soft tissue swelling. IMPRESSION: Mildly improved alignment of the acute intra-articular fracture of the distal aspect fifth proximal phalanx. Procedure Left fifth finger fracture reduction was performed under digital block anesthesia after receiving verbal consent from the patient. Using buffered 1% lidocaine without epinephrine, good local anesthesia was administered. After allowing adequate anesthesia, the fracture was reduced. It is noted that the fracture is unstable. Postreduction x-rays were performed to show improved alignment. A metal splint and macey taping were applied. Neurovascular check after splint placement was normal. ED Course Patient history and physical exam were performed. Nurse's notes were reviewed. Vital signs were reviewed and were normal. The patient refused any analgesics. X-rays of the left fifth finger shows fracture of the proximal phalanx that extends to the PIP joint. Digital block anesthesia was administered in order to reduce the fracture a little bit closer. It is noted that the fracture was unstable. Postreduction x-rays does show improved alignment. A metal splint and macey taping were applied. The mother reports that she will contact [facility] orthopedics tomorrow for a follow-up appointment. The patient was encouraged to intermittently apply ice and elevate the hand for swelling and pain. The Profen and Tylenol if needed for additional pain relief. No gym or sports until released by orthopedics. The patient voiced understanding of all discharge instructions. Medical Decision Medication Reconcilliation Current Medication List: was personally reviewed by me Blood Pressure Screening Patient's blood pressure: Normal blood pressure Impression Primary Impression: Fracture of phalanx of left little finger Departure Information Dispostion Home / Self-Care Referrals Marbin Youssef M.D. Forms HOME CARE DOCUMENTATION FORM, IMPORTANT VISIT INFORMATION Patient Instructions My [facility] Additional Instructions Ice and elevate hand for swelling and pain. Do not remove splint or macey taping until we seen by orthopedics. Ibuprofen 800 mg and/or Tylenol 1000 mg every 8 hours. You may also alternate these medications for more effective pain relief: Ibuprofen --4 HRS--> Tylenol --4 HRS--> ibuprofen --4 HRS--> Tylenol .... Follow-up with [facility] for further management -call tomorrow morning for an appointment. Problem Qualifiers Primary Impression: Fracture of phalanx of left little finger Encounter type: initial encounter Fracture type: closed Phalanx: proximal Fracture alignment: displaced Qualified Codes: S62.617A - Displaced fracture of proximal phalanx of left little finger, initial encounter for closed fracture
== END 2017-10-20 22:50 | disposition home or self-care (01) ==
LOC: C.EDB 20:31 → C.EDD 22:50
DX: S62.617A Displaced fracture of proximal phalanx of left little finger, initial encounter for closed fracture (principal); S62.627A Displaced fracture of middle phalanx of left little finger, initial encounter for closed fracture; X58.XXXA Exposure to other specified factors, initial encounter; Y93.61 Activity, american tackle football; F17.200 Nicotine dependence, unspecified, uncomplicated

== ENCOUNTER → 2017-10-26 | Day surgery (SDC) | payer OTHER ==
[2017-10-25 12:18] VITALS: Ht 175.3 cm; Wt 125.0 kg
[~2017-10-26] VITALS: Ht 175.3 cm; Wt 125.0 kg
[~2017-10-26] MED LIST changes: +ATROPINE SULFATE 0.1 MG/ML 5ML SYR IV PRN; +BUPIVACAINE 0.5 % 5 MG/1 ML MPF 30ML VIAL ONE; +CEFAZOLIN 3000MG IV PUSH 22.5 ML IV SCH; +CEFAZOLIN IV 3,000 MG in SYRINGE 0 ML IV SCH; +DEXAMETHASONE SOD INJ 4 MG/ML VIAL ONE; +FENTANYL CITRATE INJ 50 MCG/1 ML 2 ML VIAL IV PRN; +FENTANYL CITRATE INJ 50 MCG/1 ML 2 ML VIAL ONE; +KETOROLAC TROMETHAMINE 30 MG/ML VIAL IV. PRN; +LABETALOL HCL IV 5 MG/ML 20ML IV PRN; +LACTATED RINGER'S 1000ML 1,000 ML IV SCH; +LIDOCAINE HCL 2% 2 ML VIAL (20MG/ML) ONE; +MIDAZOLAM HCL 1 MG/ML 2ML VIAL ONE; +ONDANSETRON INJ 2 MG/ML 2 ML VIAL IV PRN; +ONDANSETRON INJ 2 MG/ML 2 ML VIAL ONE; +OXYC-57 PO; +OXYCODONE/ACETAMINOPHEN 5-325 TAB PO PRN; +PRLSR20 PO; +PROPOFOL IV EMULSION 10 MG/ML 20 ML VIAL ONE; +SCOPOLAMINE 1.5 MG TDSY TD ONE; +SODIUM CHLORIDE 0.9% 1000ML 1,000 ML IV SCH; -ZNT/150 PO
--- NOTE | 2017-10-26 06:59 | History & Physical Bridge - SC ---
H&P Re-Evaluation Bridge Note: I have examined the patient, reviewed the History & Physical and in the interval since the performance of the History & Physical I have noted the following changes of clinical significance: No changes noted
--- NOTE | 2017-10-26 09:20 | [facility] Post Operative Brief Note ---
Immediate Operative Summary Operative Date October 26, 2017. Pre-Operative Diagnosis Left Small Finger Fracture Post-Operative Diagnosis Same Procedure(s) Performed Left Small Finger Fracture Open Reduction Internal Fixation Surgeon Dr. Youssef [employer] Surgeon(s) Mari Arredondo PA-C Estimated Blood Loss Minimal Findings Consistent with Post-Op Diagnosis Specimens None Drains None Anesthesia Type General Complication(s) none Disposition Accompanied Pt To Recovery: no Disposition: Recovery Room / PACU
--- NOTE | 2017-10-26 09:25 | DIAGNOSTIC IMAGING REPORT ---
SURGICNTR FINGER, MIN 2 VIEWS CLINICAL HISTORY: 26 years-old Male presenting with LEFT SMALL FINGER FX. TECHNIQUE: 5 fluoroscopic image(s) recorded as part of an intraoperative procedure. COMPARISON: Plain radiographs from 10/21/2017. FINDINGS/IMPRESSION: There has been interval cortical compression plate and screw fixation of the proximal phalanx of the fifth finger. The distal most screw does not appear associated with the late and screw fixation. Normal anatomic alignment. Please see surgical report for further details. Fluoroscopy dosage (mGy): Not available. Fluoroscopy time: 32 seconds. Number of fluoroscopic spot images: 0. Electronically signed by: Blane Kessler M.D. 10/26/2017 9:24 AM Dictated Date/Time: 10/26/2017 9:23 AM
--- NOTE | 2017-10-26 09:26 | Discharge Instructions-SurgCtr ---
Discharge Instructions Date of Service October 26, 2017. Visit Reason for Visit: Left Small Finger Fracture Discharge Discharge Diagnosis / Problem: SAME ABOVE Discharge Goals Goal(s): Decrease discomfort, Improve function Activity Recommendations Activity Limitations: as noted below Lifting Limitations: until after follow-up appointment Shower/Bathe: keep incision dry Anesthesia . Post Anesthesia Instructions: If you have had General Anesthesia or IV Sedation: * Do not drive today. * Resume driving when surgeon permits. * Do not make important decisions or sign legal documents today. * Call surgeon for: 1. Temperature elevations greater than 101 degrees F. 2. Uncontrollable pain. 3. Excessive bleeding. 4. Persistent nausea and vomiting. 5. Medication intolerance (nausea, vomiting or rash). * For nausea and vomiting use only clear liquids such as: tea, soda, bouillon until nausea subsides, then gradually increase diet as tolerated. * If you have any concerns or questions, call your surgeon's office. If physician is unavailable and it is an emergency, call 911 or go to the nearest emergency room. . Instructions / Follow-Up Instructions / Follow-Up MEDICATIONS: * Resume previous medications unless instructed otherwise by your surgeon. * Always take pain medication on a full stomach or with food to avoid upset stomach. * Do not drink alcohol or drive while taking narcotics. * Ibuprofen or Tylenol may be taken if narcotic not needed. SPECIAL CARE INSTRUCTIONS: __ None _X_ Keep extremity elevated and iced x 48 hours; apply ice 20-30 minutes 8-10 times/day. May remove at night. __ Sling __24 hrs/day __ Remove at night __ Shoulder Immobilizer __ 24 hrs/day __ Remove at night _X_ Dressing _X_ Maintain until seen in office, may shower with plastic over site __ Remove dressings in 24-48 hours and then may shower __ Cover incisions with band-aids after showering __ Do not remove steri-strips FOLLOW UP WITH DR. SMITH IN THE OFFICE ON 10/31/17 Call physician if chills or temperature rises above 102 degrees or pain unrelieved by prescribed pain medications at . . Diet Recommendations Home Diet: no limitations Procedures Procedures Performed: Left Small Finger Fracture Open Reduction Internal Fixation Pending Studies Studies pending at discharge: no Medical Emergencies . Who to Call and When: Medical Emergencies: If at any time you feel your situation is an emergency, please call 911 immediately. . Non-Emergent Contact Non-Emergency issues call your: Primary Care Provider . . "Provider Documentation" section prepared by Manolo Arredondo. .
[2017-10-26 10:10] VITALS: BP 144/83; PULSE 70; TEMP 36.4; O2SAT 95
--- NOTE | 2017-10-26 10:39 | Anesthesia Progress Nt - [facility] ---
Anesthesia Post Op Note Date & Time October 26, 2017 at 10:39 Vital Signs Pain Intensity: 0 Vital Signs Past 12 Hours Date Time Temp Pulse Resp B/P (MAP) Pulse Ox O2 Delivery O2 Flow Rate FiO2 10/26/17 10:10 36.4 70 16 144/83 (103) 95 Room Air 10/26/17 10:07 36.4 10/26/17 10:06 66 17 143/91 (95) 92 10/26/17 10:06 64 17 10/26/17 10:01 73 16 10/26/17 10:01 73 16 146/92 (102) 95 10/26/17 09:56 58 9 10/26/17 09:56 56 9 155/92 (105) 95 10/26/17 09:55 Room Air 10/26/17 09:51 67 15 138/94 (107) 98 10/26/17 09:51 64 15 10/26/17 09:46 60 14 151/95 (102) 98 10/26/17 09:46 59 14 10/26/17 09:41 72 15 141/92 (113) 100 10/26/17 09:41 71 15 10/26/17 09:36 78 17 146/94 (106) 99 10/26/17 09:36 77 17 10/26/17 09:31 13 10/26/17 09:31 86 13 140/87 (94) 10/26/17 09:26 12 10/26/17 09:26 72 12 152/111 (131) 10/26/17 09:24 139/95 (103) 10/26/17 09:21 36.1 65 12 139/95 98 Diffusion Mask 5 10/26/17 06:49 36.7 74 16 146/82 (103) 94 Room Air Notes Mental Status: alert / awake / arousable, participated in evaluation Pt Amnestic to Procedure: Yes Nausea / Vomiting: adequately controlled Pain: adequately controlled Airway Patency, RR, SpO2: stable & adequate BP & HR: stable & adequate Hydration State: stable & adequate Anesthetic Complications: no major complications apparent
--- NOTE | 2017-10-26 14:58 | OPERATIVE REPORT ---
DATE OF OPERATION: 10/26/2017 SURGEON: Marbin Youssef MD THREE DIMENSIONAL MAP MODELER: Manolo Arredondo PA-C. PREOPERATIVE DIAGNOSIS: Left small finger proximal phalanx unicondylar fracture with displacement. POSTOPERATIVE DIAGNOSIS: Left small finger proximal phalanx unicondylar fracture with displacement. PROCEDURE PERFORMED: Open reduction and internal fixation of left small finger proximal phalanx unicondylar fracture. COMPLICATIONS: None. ESTIMATED BLOOD LOSS: Minimal. TOURNIQUET TIME: 54 minutes at 250 mmHg. ANESTHESIA: General. SPECIMENS: None. OPERATIVE INDICATIONS: The patient is a 26-year-old right hand dominant gentleman who was playing football in the last week and sustained an injury to his left small finger when he went to catch the ball, proximal phalanx fracture. It was markedly unstable and deformed. The patient indicated for surgical treatment. OPERATIVE FINDINGS: Operative findings right unicondylar fracture. It was markedly unstable and displaced. OPERATIVE IMPLANTS: Operative implants consisted of: 1. A Synthes 1.5 mm stainless steel fully threaded cortical screw. 2. Synthes 1.3 mm 4-hole modular and stainless steel plate. 3. A 1.3 mm modular hand Synthes cortical screws x2, one is 10 mm length and one is 11 mm length. OPERATIVE PROCEDURE: Patient was taken to the operating room and identified and placed on the operating table in supine position. All contact areas were appropriately padded. IV antibiotics were provided by anesthesia team. General anesthetic was implemented. A right upper extremity tourniquet was placed. The right hand was then prepped and draped in the usual sterile fashion. I first did a digital block of the left small finger with 10 mL of 0.5% Marcaine. The left hand was then elevated and exsanguinated using Esmarch. The tourniquet was placed at 250 mmHg. A dorsal radial incision was made over the proximal phalanx and extending distally past the DIP joint. Sharp dissection was carried through the subcutaneous tissue down to the level of the extensor mechanism. I then released the retinacular fibers volar to the lateral band on the radial side and elevated the lateral band along with the central slip tendon dorsally. I made an incision in the joint capsule which was already quite traumatized from the fracture. We removed this, so we could adequately reduce the fracture. I did clean the fracture site of all clots. I then was able to hold this reduced mostly with my fingers with some traction and then placed a single K-wire across the fracture site. I then placed a single 1.5 mm screw, placed in a lag fashion across the fracture site to provide the fixation. It did provide reasonable fixation but I did not feel this was adequate to begin early range of motion. Therefore, I elected to provide some buttress fixation with a small plate. A 1.3 mm plate was selected. There were 6 holes initially and I cut 2 of the holes off. I then under contoured it and then fixed it proximally with two 1.3 mm cortical screws. This provided a nice buttress to the base of the fracture to assure that it did not go into angulation. I did not place any screws distally as I thought it would just fragment the fracture. Some final x-rays were obtained. Attention was then drawn toward closing. The wound was irrigated with copious amounts of normal saline. The retinacular fibers were repaired to the lateral band with 3-0 Vicryl suture in a [id number] fashion. The tourniquet was then let down for a tourniquet time of 54 minutes. Hemostasis was assured with use of electrocautery. The wound was once again irrigated. The skin was then closed with 4-0 nylon suture in simple fashion. The finger was then cleaned and dried and a sterile dressing with Xeroform, 4 x 4s, 1 inch Alethea wrap and a splint with the finger in full extension was applied. The patient was then brought out of general anesthesia and placed in a sling. He was transferred to the recovery room in stable condition. The patient tolerated the procedure well with no complication. All needle and sponge counts were correct at the end of the operation. I attest to the content of the Intraoperative Record and any orders documented therein. Any exception s are noted below.
== END | disposition home or self-care (01) ==
LOC: X.SURG 06:42
PROVIDERS: ATTEND Orthopaedic Surgery Sports Medicine
DX: S62.611A Displaced fracture of proximal phalanx of left index finger, initial encounter for closed fracture (principal); K21.9 Gastro-esophageal reflux disease without esophagitis; W21.01XA Struck by football, initial encounter; Y93.61 Activity, american tackle football